=== PATIENT | female | born 1990 | race Caucasian/White ===

== ENCOUNTER → 2017-04-25 17:09 | Outpatient (CLI) | payer MEDICAID ==
[2017-04-25 18:06] LABS: APPEARANCE CLEAR (CLEAR); BILIRUBIN NEGATIVE (NEGATIVE); COLOR YELLOW (YELLOW); GLUCOSE NEGATIVE (NEGATIVE); KETONE NEGATIVE (NEGATIVE); LEUKOCYTE ESTERASE TRACE (NEGATIVE); NITRITE NEGATIVE (NEGATIVE); PROTEIN NEGATIVE (NEGATIVE); SPECIFIC GRAVITY 1.015 (1.005-1.020); UROBILINOGEN NORMAL (NORMAL)
[2017-04-25 18:07] LABS: BACTERIA MANY /hpf (NONE SEEN); MUCUS <1+ /lpf (NONE SEEN); RED CELLS - URINE OCC /hpf (0-5); WHITE CELLS - URINE 0-5 /hpf (0-5)
[2017-04-25 18:18] LABS: UDS - AMPHET NEGATIVE QUAL (NEGATIVE); UDS - BARB NEGATIVE QUAL (NEGATIVE); UDS - BENZO NEGATIVE QUAL (NEGATIVE); UDS - COCAINE NEGATIVE QUAL (NEGATIVE); UDS - METH NEGATIVE QUAL (NEGATIVE); UDS - OPIATE NEGATIVE QUAL (NEGATIVE); UDS - PCP NEGATIVE QUAL (NEGATIVE); UDS - THC NEGATIVE QUAL (NEGATIVE)
== END | disposition home or self-care (01) ==
LOC: D.LDO 17:09
PROVIDERS: Obstetrics & Gynecology
DX: O36.8190 Decreased fetal movements, unspecified trimester, not applicable or unspecified (principal)

== ENCOUNTER → 2017-06-06 11:51 | Outpatient (CLI) | payer MEDICAID ==
[2017-06-06 12:46] LABS: APPEARANCE HAZY (CLEAR); BACTERIA MODERATE /hpf (NONE SEEN); BILIRUBIN NEGATIVE (NEGATIVE); COLOR YELLOW (YELLOW); EPITHELIAL CELLS 0-5 /hpf (0-5); GLUCOSE NEGATIVE (NEGATIVE); KETONE NEGATIVE (NEGATIVE); LEUKOCYTE ESTERASE 1+ (NEGATIVE); NITRITE NEGATIVE (NEGATIVE); PROTEIN NEGATIVE (NEGATIVE); RED CELLS - URINE OCC /hpf (0-5); UROBILINOGEN NORMAL (NORMAL); WHITE CELLS - URINE 0-5 /hpf (0-5)
[2017-06-06 12:47] LABS: MUCUS <1+ /lpf (NONE SEEN)
== END | disposition home or self-care (01) ==
LOC: D.LDO 11:51
PROVIDERS: Obstetrics & Gynecology
DX: Z34.83 Encounter for supervision of other normal pregnancy, third trimester (principal); Z3A.37 37 weeks gestation of pregnancy

== ENCOUNTER → 2017-06-15 07:26 | Outpatient (CLI) | payer MEDICAID ==
[2017-06-15 08:20] LABS: APPEARANCE HAZY (CLEAR); BILIRUBIN NEGATIVE (NEGATIVE); COLOR YELLOW (YELLOW); GLUCOSE NEGATIVE (NEGATIVE); KETONE NEGATIVE (NEGATIVE); LEUKOCYTE ESTERASE TRACE (NEGATIVE); NITRITE NEGATIVE (NEGATIVE); PROTEIN NEGATIVE (NEGATIVE); UROBILINOGEN NORMAL (NORMAL)
[2017-06-15 08:24] LABS: EPITHELIAL CELLS 0-5 /hpf (0-5); RED CELLS - URINE OCC /hpf (0-5)
[2017-06-15 08:25] LABS: BACTERIA MODERATE /hpf (NONE SEEN); HYALINE CAST OCC /lpf (NONE SEEN); MUCUS <1+ /lpf (NONE SEEN)
== END | disposition home or self-care (01) ==
LOC: D.LDO 07:26
PROVIDERS: Obstetrics & Gynecology
DX: Z34.83 Encounter for supervision of other normal pregnancy, third trimester (principal); Z3A.39 39 weeks gestation of pregnancy

== ENCOUNTER → 2017-06-16 16:30 | Outpatient (CLI) | payer MEDICAID | END | disposition home or self-care (01) | LOC: D.LDO 16:30 | DX: Z34.83 Encounter for supervision of other normal pregnancy, third trimester (principal); Z3A.39 39 weeks gestation of pregnancy ==

== ENCOUNTER 2017-06-18 05:13 | Inpatient (IN) | payer MEDICAID ==
[~2017-06-18] VITALS: Ht 175.3 cm; Wt 75.7 kg
[2017-06-18] MEDS ORDERED: ACETAMINOPHEN325 MG PO (05:42)
[2017-06-18 05:43] VITALS: BP 121/86; Ht 175.3 cm; Wt 75.7 kg
[2017-06-18] MEDS ORDERED: PRENATAL COMPLE1 TAB PO (05:43)
[2017-06-18 07:01] LABS: APPEARANCE HAZY (CLEAR); BACTERIA MODERATE /hpf (NONE SEEN); BILIRUBIN NEGATIVE (NEGATIVE); COLOR YELLOW (YELLOW); EPITHELIAL CELLS 0-5 /hpf (0-5); GLUCOSE NEGATIVE (NEGATIVE); KETONE NEGATIVE (NEGATIVE); LEUKOCYTE ESTERASE TRACE (NEGATIVE); MUCUS <1+ /lpf (NONE SEEN); NITRITE NEGATIVE (NEGATIVE); PROTEIN NEGATIVE (NEGATIVE); RED CELLS - URINE RARE /hpf (0-5); UROBILINOGEN NORMAL (NORMAL); WHITE CELLS - URINE 0-5 /hpf (0-5)
[2017-06-18 07:06] LABS: HEMATOCRIT 35.9 % (36.0-48.0); HEMOGLOBIN 12.3 g/dL (12-16); MCH 33.2 pg (26.0-34.0); MCHC 34.3 g/dL (31.0-37.0); MCV 96.8 fL (80.0-100.0); RBC 3.71 10x6/uL (4.00-5.40); RDW 13.3 % (11.5-14.5); WBC 12.1 10x3/uL (4.8-10.8)
--- NOTE | 2017-06-18 19:20 | NUR ---
AWAKE AND ORIENTED. POSITIONED ON BACK WITH HOB AT 45 DEGREES. FUNDUS FIRM U/3 AND LOCHIA RUBRA MOD. PT. RELATES THAT ABD. CRAMPING IS A 5 OF 10 AND STATES THAT SHE IS AWARE THAT CRAMPING USUALLY INCREASES WITH EACH DELIVERY. EXPLAINED TO PT. THAT CRAMPING DOES SERVE A PURPOSE OF KEEPING THE UTERUS CONTRACTED AND HELPS REDUCE INCIDENCE OF HEMMORHAGE OR EXCESSIVE BLEEDING. PT. STATES UNDERSTANDING TO ALL. MALE SITTING ON SOFA AND TALKING WITH PT. PT. CHEERFUL. REPORTED TO PT. NOURISHMENTS THAT ARE AVAILABLE TO HER IF SHE NEEDS MORE TO EAT TONIGHT. PT. STATED UNDERSTANDING TO ALL. ENCUORAGED PT. TO PUSH CALL LIGHT WITH ANY NEEDS.
[2017-06-18 19:28] VITALS: BP 120/69
--- NOTE | 2017-06-18 20:28 | NUR ---
PT. CURRENTLY IN SHOWER. FAMILY IN ROOM HOLDING INFANT.
--- NOTE | 2017-06-18 21:20 | NUR ---
HOLDING . RELATES THAT SHOWER MADE HER "FEEL MUCH BETTER". REQUESTING PAIN MED AND COLA DRINK.
--- NOTE | 2017-06-18 21:28 | NUR ---
PAIN MED GIVEN ORDERED FOR ABD. CRAMPING THAT PT. RATES A 6 OF 10. PT. STATES THAT SHE NOTES CRAMPING IS INCREASED WITH . MALE ON SOFA AND LINENS PROVIDED FOR SOFA DUE TO HIS INTENT TO SPEND NIGHT. COLA DRINK SERVED TO PT. DENIES ANY FURTHER NEEDS. CONTINUES TO HOLD .
--- NOTE | 2017-06-18 22:08 | NUR ---
PAIN REASSESSMENT COMPLETE. PT RATES PAIN 8/10 AT THIS TIME AND STATES "IT'S A LITTLE BIT BETTER." PT DENIES NEED TO VOID AT THIS TIME. ADV PT THAT IF UNABLE TO VOID AFTER 4 HOURS FROM CATH D/C THEN IN & OUT CATH MAY BE NEEDED. PT VERBALIZED UNDERSTANDING AND DENIES FURTHER NEEDS. FAMILY REMAINS AT BEDSIDE. IN OPEN CRIB AT BEDSIDE.
--- NOTE | 2017-06-18 22:10 | NUR ---
SITTING UP IN BED EATING FOOD BROUGHT INTO HOSPITAL. MALE ALSO SITTING ON BED WITH PT. INFANT IN OPEN CRIB AT BEDSIDE. PT. CHEERFUL AND STATES PAIN MED WAS EFFECTIVE AND RATES A 4 OF 10 ON PAIN SCALE . DENIES ANY FURTHER NEEDS
--- NOTE | 2017-06-18 23:40 | NUR ---
LYING ON LT SIDE WITH HOB AT 15 DEGREES. MALE LYING ON SOFA. IN OPEN CRIB AT BEDSIDE. PT. DENIES ANY NEEDS AT THIS TIME.
[2017-06-19 00:54] VITALS: BP 110/64
--- NOTE | 2017-06-19 00:54 | NUR ---
PT RINGS CL. RN TO BEDSIDE. PT C/O CRAMPING WITH PAIN 8/10 AT THIS TIME. ADV PT NORCO DUE IN 30 MINS BUT COULD HAVE MOTRIN. PT VERBALIZES UNDERSTANDING AND IS AGREEABLE. VS ASSESSED AT THIS TIME. WILL RETURN WITH MEDICATION.
--- NOTE | 2017-06-19 00:57 | NUR ---
MOTRIN 600MG X1 TAB GIVEN FOR CRAMPING PAIN 06/19. ICE WATER ALSO PROVIDED AT THIS TIME. PT REQUESTS NORCO TO BE BROUGHT WHEN AVAILABLE. PLAN TO DO SAME. PT UP TO VOID AT THIS TIME AND DENIES FURTHER NEEDS.
--- NOTE | 2017-06-19 01:32 | NUR ---
PT. AT PRESENT. RATES PAIN AN 8 OF 10 ON PAIN SCALE. PT. REPORTS THAT HAS BEEN SINCE MOTRIN WAS GIVEN SO PAIN HAS NOT CHANGED YET. SITTING UP IN BED. MALE SLEEPING ON SOFA. PAIN MED GIVEN ORDERED. PT. DENIES ANY FURTHER NEEDS.
--- NOTE | 2017-06-19 02:18 | NUR ---
PT. LYING ON LT SIDE. RATES PAIN A 6 OF 10 ON PAIN SCORE. IN OPEN CRIB AT BEDSIDE.
--- NOTE | 2017-06-19 04:16 | NUR ---
LYING ON LT. SIDE WITH EYES CLOSED. RESPIRATIONS REGULAR. TV REMAINS ON. MALE SLEEPING ON SOFA.
--- NOTE | 2017-06-19 04:43 | NUR ---
PT. CALLED C/O ABD. CRAMPING . INFORMED WHEN PAIN MED COULD BE GIVEN. WARM BLANKET PROVIDED TO PLACE AGAINST ABD. PT. REPORTS THAT WARM BLANKET HELPED EARLIER WITH THE CRAMPING. LAB IN ROOM FOR BLOOD DRAW.
--- NOTE | 2017-06-19 04:56 | NUR ---
DR. COOPER CALLED AND INFORMED THAT PT. HAS NOT BEEN RELIEVED FROM CRAMPING WITH CURRENT PAIN MED. ORDER RECEIVED FOR ONE TIME INCREASED DOSE.
--- NOTE | 2017-06-19 04:58 | NUR ---
PT. UP TO BATHROOM AND VOIDED. INFORMED THAT MD CALLED AND HE STATED TO GIVE ONE TIME INCREASED DOSE. PT. AGREEABLE TO PLAN. BACK TO BED.
[2017-06-19 05:00] LABS: BASOPHILS 0.1 % (0-2); EOSINOPHILS 0.8 % (0-7); HEMATOCRIT 33.2 % (36.0-48.0); HEMOGLOBIN 11.3 g/dL (12-16); IMMATURE GRANULOCYTES 0.5 % (0-5); LYMPHOCYTES 18.5 % (15-50); MCH 33.3 pg (26.0-34.0); MCV 97.9 fL (80.0-100.0); MEAN PLATELET VOLUME 9.6 fL (7.4-10.4); MONOCYTES 9.5 % (2-11); NEUTROPHILS 70.6 % (40-80); RBC 3.39 10x6/uL (4.00-5.40); RDW 13.4 % (11.5-14.5); WBC 14.7 10x3/uL (4.8-10.8)
--- NOTE | 2017-06-19 05:00 | NUR ---
PAIN MED GIVEN ORDERED. FUNDUS FIRM U/3 AND LOCHIA RUBRA SCANT AT THIS TIME. PT. PLACES WARM BLANKET ON ABD. INFORMED THAT MED COULD CAUSE HER TO FEEL SLEEPY , WELL. PT. STATES UNDERSTANDING. SIDE RAILS UP X 2 AND CALL LIGHT WITHIN REACH. ICE WATER PROVIDED.
[2017-06-19 05:05] LABS: PLATELET COUNT 183 10x3/uL (130-400)
--- NOTE | 2017-06-19 05:34 | NUR ---
PT BABY, RATES PAIN 5/10, REQUESTED AND SERVED FRESH H20, PT DENIES FURTHER NEEDS, FOB ASLEEP ON COUCH
[2017-06-19 06:14] LABS: RAPID PLASMA REAGIN Non Reactive (Non Reactive)
--- NOTE | 2017-06-19 07:26 | NUR ---
AM assessment completed as charted on flowsheet. Rates pain at 3/10. VSS as charted on graphic. Shilpa pads, panties and washclothes provided per pt request. Regular diet tray brought to room, guest tray offered but spouse denies at this time. Infant in crib at bedside, side rails up x 2 with phone and call light in reach.
[2017-06-19 07:32] VITALS: BP 110/75
--- NOTE | 2017-06-19 09:09 | NUR ---
Nikkie Brown 06[birth year] LE@ 8:45 S: Patient states" is going great, this is her 2nd baby and she has breastfed before, feels good right now, no questions regarding ". O: Patient sitting on side on bed visiting with family member who is standing holding , infant is sleeping. Congratulated on delivery, praised for , and encouraged patient to continue to feed infant on demand. in the beginning takes time for both mother and . When displays feeding cues (explained what feeding cues are) baby should be placed to the breast for feeding, feed infant on demand, this will help with establishing your milk supply. Supply and demand what baby takes out your body will make more of, explained breastmilk composition and how to help prevent engorgement. Explained and provided handouts on feeding cues, positions, waking a sleeping, what to expect the first week, skin to skin, engorgement, and hand expression. Encouraged to latch for every feeding, to verify infant is latched turn tummy to tummy, nose opposite of nipple, gently support infant head, and allow infant to self-latch. shouldn't be sucking only on the nipple, mouth should be open wide and have some of the areola in her mouth also (provided handout on how to verify infant latch is correct). Asked patient if her nipples are sore, patient replies "not yet". shouldn't hurt, it is normal for it to be sensitive at first. Pain and aren't related. If you experience any pain regarding , we need to reevaluate latch. Provided work cell number, please call as needed with any questions or concerns, asked if I could help in any other way, all declined, and thanked CLC. A: Patient appears confident with . P: Continue to support exclusively . Kishan Roa, CLC
--- NOTE | 2017-06-19 09:45 | NUR ---
Pt resting with infant in crib at bedside. Denies any needs at this time, continue to rate her pain at 3/10. Call light and phone in reach with side rails up x 2.
--- NOTE | 2017-06-19 11:30 | NUR ---
requesting cola and pain medication- co cramping in abd- rates pain a 7 on scale of 0-10.
--- NOTE | 2017-06-19 12:30 | NUR ---
Pt denies pain or discmfort at this time, sitting up on side of bed with regular diet and in crib at bedside.
--- NOTE | 2017-06-19 14:45 | NUR ---
Verified with nursery to confirm infant discharge, per pt request. large ice water provided per request. Rates pain at 0/10, side rails up x 2 with call light in reach.
--- NOTE | 2017-06-19 15:19 | NUR ---
sig other to unit desk per pt request for lemon circle soda and large cup of ice. no other needs at this time.
--- NOTE | 2017-06-19 16:00 | NUR ---
VERBAL AND WRITTEN DISCHARGE INSTRUCTIONS GIVEN WITH SCR[facility]TS FOR NORCO 5/325MG AND MOTRIN 600MG. PT STATES UNDERSTANDING TO ALL INFO AND DENIES ANY QUESTIONS OR CONCERNS. SHE DOES ASK FOR PAIN MED PRIOR TO D/C FOR CRAMPING AND BURNING THAT IS RATED AT 5/10. TO BREAST AT THIS TIME.
--- NOTE | 2017-06-19 16:18 | NUR ---
PAIN MED GIVEN FOR CRAMPING AND KENNY PAIN THAT SHE RATES AT 5/10. INFANT TO BREAST AT THIS TIME AND PT WILL CALL FOR WHEELCHAIR WHEN SHE IS READY.
== END 2017-06-19 16:30 | disposition home or self-care (01) | DRG 775 ==
LOC: D.LD 05:13
PROVIDERS: ADMIT Obstetrics & Gynecology
PROC: 10E0XZZ Delivery of Products of Conception, External Approach (ICD-10-PCS; principal; 2017-06-18)
DX: O80 Encounter for full-term uncomplicated delivery (principal); Z3A.39 39 weeks gestation of pregnancy; Z37.0 Single live birth; Z87.891 Personal history of nicotine dependence; Z87.410 Personal history of cervical dysplasia